=== PATIENT | female | born 1990 | race Caucasian/White ===

== ENCOUNTER → 2016-09-27 | Outpatient (CLI) | payer BC | LOC: EDBD 15:44 → KOH-I 15:44 | DX: E28.2 Polycystic ovarian syndrome (principal) | CPT/HCPCS: 76830 ==

== ENCOUNTER → 2022-02-05 | Outpatient (CLI) | payer OTHER ==
[~2022-02-05] MED LIST: ADIPEX-P37.5 MG PO; ALDACTONE100 MG PO; COLACE 100MG C100 MG PO; EXCEDRIN EXTRA1 EACH PO; LOESTRIN 21 1-1 EACH PO; METFORMIN HCL1000 MG PO; NORCO 7.5-3251 EACH PO; PROZAC20 MG PO; VITAMIN D350000 UNIT PO
== END ==
LOC: KOH-I 01-29 09:00
DX: G44.89 Other headache syndrome (principal)
CPT/HCPCS: 70450